=== PATIENT | female | born 2000 | race Hispanic/Latino ===

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

== ENCOUNTER 2018-03-02 18:40 | Emergency (ER) | payer OTHER ==
[2018-03-02 19:30] LABS: Urine Bacteria 20-50 /HPF (<20); Urine Culture Reflex Order NOT NEEDED; Urine Mucus 2+ /HPF (NONE SEEN); Urine RBC <5 /HPF (NONE SEEN)
[2018-03-02 19:31] LABS: Urine Blood NEGATIVE (NEG); Urine Glucose NEGATIVE (NEG); Urine Protein NEGATIVE (NEG); Urine pH 7.5 (5.0-7.0)
[2018-03-02 20:21] LABS: Absolute Lymphocytes (CBC) 2.6 K/uL (0.7-4.9); Absolute Monocytes 0.7 K/uL (0.1-1.3); Absolute Neutrophil 4.4 K/uL (1.8-8.0); Basophils % 0.5 % (0-1.3); Eosinophils % 1.1 % (0-4.4); Hematocrit 37.7 % (36.0-45.0); MCH 29.7 pg (27.0-35.0); MCV 86.4 fL (80-100); MPV 7.8 fL (7.6-11.3); RBC Red Blood Cell Count 4.36 M/uL (3.86-4.86)
[2018-03-02] MEDS ORDERED: NA CHLORIDE 0.9% 1,000 ML ONE (20:23)
[2018-03-02] MEDS ORDERED: KETOROLAC 30 MG/ML INJ ONE (20:23)
[2018-03-02 20:51] LABS: ALT/SGPT 18 U/L (12-78); AST/SGOT 10 U/L (15-37); Albumin 4.1 g/dL (3.4-5.0); Alkaline Phosphatase 55 U/L (45-117); BUN Blood Urea Nitrogen 16 mg/dL (7-18); Bicarbonate 24 mmol/L (21-32); Bilirubin Direct 0.1 mg/dL (0-0.2); Bilirubin Total 0.5 mg/dL (0.2-1.0); Glucose Level 87 mg/dL (74-106); Lipase 121 U/L (73-393); Potassium 3.7 mmol/L (3.5-5.1); Protein, Total 7.8 g/dL (6.4-8.2); Sodium Level 140 mmol/L (136-145)
[2018-03-03] MEDS ORDERED: PROMETHAZINE 25 MG/ML VIAL ONE (00:07)
--- NOTE | 2018-03-03 00:26 | EDPHYS ---
Physician Documentation [facility] Name: Brenda Reina Age: 17 yrs Sex: Female : 2000 Arrival Date: 03/02/2018 Time: 18:43 Bed 28 Private MD: None, None ED Physician Thiago Amador HPI: 03/02 21:57 This 17 yrs old Female presents to ER via Ambulatory with complaints of snw Abdominal Pain. 21:57 The patient presents with abdominal pain in the upper abdomen. Onset: The snw symptoms/episode began/occurred acutely. The symptoms do not radiate. Associated signs and symptoms: Pertinent positives: nausea. The symptoms are described as steady. Severity of pain: At its worst the pain was moderate. The patient has not experienced similar symptoms in the past. The patient has not recently seen a physician. spotting, irregular menses. 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 - Social history:: Smoking status: Patient/guardian denies using tobacco. - Ebola Screening: : No symptoms or risks identified at this time. ROS: 21:57 Constitutional: Negative for fever, chills, and weight loss, Eyes: Negative for injury, snw pain, redness, and discharge, ENT: Negative for injury, pain, and discharge, Neck: Negative for injury, pain, and swelling, Cardiovascular: Negative for chest pain, palpitations, and edema, Respiratory: Negative for shortness of breath, cough, wheezing, and pleuritic chest pain, Back: Negative for injury and pain, : Negative for injury, bleeding, discharge, and swelling, MS/Extremity: Negative for injury and deformity, Skin: Negative for injury, rash, and discoloration, Neuro: Negative for headache, weakness, numbness, tingling, and seizure. 21:57 Abdomen/GI: Positive for abdominal pain, nausea. Exam: 21:46 Constitutional: This is a well developed, well nourished patient who is awake, alert, snw and in no acute distress. Head/Face: Normocephalic, atraumatic. Eyes: Pupils equal round and reactive to light, extra-ocular motions intact. Lids and lashes normal. Conjunctiva and sclera are non-icteric and not injected. Cornea within normal limits. Periorbital areas with no swelling, redness, or edema. ENT: Nares patent. No nasal discharge, no septal abnormalities noted. Tympanic membranes are normal and external auditory canals are clear. Oropharynx with no redness, swelling, or masses, exudates, or evidence of obstruction, uvula midline. Mucous membranes moist. Neck: Trachea midline, no thyromegaly or masses palpated, and no cervical lymphadenopathy. Supple, full range of motion without nuchal rigidity, or vertebral point tenderness. No Meningismus. Chest/axilla: Normal chest wall appearance and motion. Nontender with no deformity. No lesions are appreciated. Cardiovascular: Regular rate and rhythm with a normal S1 and S2. No gallops, murmurs, or rubs. Normal PMI, no JVD. No pulse deficits. Respiratory: Lungs have equal breath sounds bilaterally, clear to auscultation and percussion. No rales, rhonchi or wheezes noted. No increased work of breathing, no retractions or nasal flaring. Back: No spinal tenderness. No costovertebral tenderness. Full range of motion. Skin: Warm, dry with normal turgor. Normal color with no rashes, no lesions, and no evidence of cellulitis. MS/ Extremity: Pulses equal, no cyanosis. Neurovascular intact. Full, normal range of motion. Neuro: Awake and alert, GCS 15, oriented to person, place, time, and situation. Cranial nerves II-XII grossly intact. Motor strength 5/5 in all extremities. Sensory grossly intact. Cerebellar exam normal. Normal gait. Psych: Awake, alert, with orientation to person, place and time. Behavior, mood, and affect are within normal limits. 21:46 Abdomen/GI: Inspection: distension, that is mild, Bowel sounds: hyperactive, Palpation: moderate abdominal tenderness, in all quadrants. Vital Signs: 19:03 BP 115 / 76; Pulse 86; Resp 18; Temp 98.1; Pulse Ox 100% on R/A; Weight 46.27 kg; ph Height 5 ft. 2 in. (157.48 cm); Pain 7/10; 19:37 BP 109 / 76; Pulse 87; Resp 17; Temp 97.6(O); Pulse Ox 100% on R/A; Pain 7/10; ed1 21:05 BP 115 / 77; Pulse 61; Resp 17; Pulse Ox 100% on R/A; Pain 5/10; ed1 22:01 BP 122 / 79; Pulse 73; Resp 17; Pulse Ox 99% on R/A; Pain 5/10; ed1 23:51 BP 114 / 81; Pulse 70; Resp 18; Temp 98.8; Pulse Ox 100% on R/A; ag4 03/03 00:42 BP 115 / 78; Pulse 70; Resp 16 S; Temp 98.7(O); Pulse Ox 96% on R/A; bb 03/02 19:03 Body Mass Index 18.66 (46.27 kg, 157.48 cm) ph MDM: 03/02 19:37 Patient medically screened. snw 22:38 Data reviewed: vital signs, nurses notes. Data interpreted: Pulse oximetry: on room air snw is 99 %. Counseling: I had a detailed discussion with the patient and/or guardian regarding: the historical points, exam findings, and any diagnostic results supporting the discharge/admit diagnosis. Awaiting: pt to CT via w/c. 03/02 18:59 Order name: Urine Culture snw 03/02 18:59 Order name: Urine Microscopic Only; Complete Time: 19:32 snw 03/02 19:20 Order name: Urine Dipstick--Ancillary (enter results); Complete Time: 19:32 gm 03/02 19:20 Order name: Urine --Ancillary (enter results); Complete Time: 19:32 gm 03/02 19:51 Order name: Basic Metabolic Panel; Complete Time: 20:53 snw 03/02 19:51 Order name: CBC with Diff; Complete Time: 20:33 snw 03/02 18:59 Order name: Urine Test (obtain specimen); Complete Time: 19:13 snw 03/02 18:59 Order name: Urine Dipstick-Ancillary (obtain specimen); Complete Time: 19:13 snw 03/02 19:51 Order name: Hepatic Function; Complete Time: 20:53 snw 03/02 19:51 Order name: Lipase; Complete Time: 20:53 snw 03/02 19:52 Order name: CT Abd/Pelvis - W/Contrast snw 03/02 19:51 Order name: IV Saline Lock; Complete Time: 20:12 snw 03/02 19:51 Order name: Labs collected and sent; Complete Time: 20:12 snw Administered Medications: 20:19 Drug: NS 0.9% 1000 ml Route: IV; Rate: 1 bolus; Site: right antecubital; bb 21:06 Follow up: IV Status: Completed infusion; IV Intake: 1000ml ed1 20:19 Drug: TORadol 30 mg Route: IVP; Site: right antecubital; bb 21:06 Follow up: Response: No adverse reaction; Pain is decreased ed1 03/03 00:01 Drug: Phenergan 6.25 mg Route: IVP; Site: right antecubital; kr2 00:34 Follow up: Response: No adverse reaction; Nausea is decreased kr2 Disposition: 03/03/18 00:25 Discharged to Home. Impression: Lower abdominal pain, unspecified. - Condition is Stable. - Discharge Instructions: Abdominal Pain, Adult, Hypertension. - Prescriptions for Bentyl 20 mg Oral Tablet - take 1 tablet by ORAL route every 6 hours As needed; 20 tablet. Zofran 4 mg Oral Tablet - take 1 tablet by ORAL route every 12 hours As needed; 20 tablet. - Medication Reconciliation Form, Thank You Letter, Antibiotic Education, Prescription Opioid Use form. - Follow up: Private Physician; When: 2 - 3 days; Reason: Recheck today's complaints, Continuance of care, Re-evaluation by your physician. Follow up: Emergency Department; When: As needed; Reason: Worsening of condition. Signatures: Dispatcher [employer] [facility] Lizzy Edwards, CYCLE TOURING GUIDE-C CYCLE TOURING GUIDE-Csnw Lisa Cain RN RN bb Anila Parrish, RN RN Diane Napoles RN RN yuri2 Joan Rdz LVN ed1 Corrections: (The following items were deleted from the chart) 00:43 00:25 03/03/2018 00:25 Discharged to Home. Impression: Lower abdominal pain, bb unspecified. Condition is Stable. Forms are Medication Reconciliation Form, Thank You Letter, Antibiotic Education, Prescription Opioid Use. Follow up: Private Physician; When: 2 - 3 days; Reason: Recheck today's complaints, Continuance of care, Re-evaluation by your physician. Follow up: Emergency Department; When: As needed; Reason: Worsening of condition. w
--- NOTE | 2018-03-03 00:26 | ER ---
Nurse's Notes [facility] Name: Brenda Reina Age: 17 yrs Sex: Female : 2000 Arrival Date: 03/02/2018 Time: 18:43 Bed 28 Private MD: None, None Diagnosis: Lower abdominal pain, unspecified Presentation: 03/02 19:02 Presenting complaint: Patient states: Lower abdominal pain and diarrhea x 2-3 days, ph denies vomiting or fever. Transition of care: patient was not received from another setting of care. Onset of symptoms was March 02, 2018. Risk Assessment: Do you want to hurt yourself or someone else? Patient reports no desire to harm self or others. Initial Sepsis Screen: Does the patient meet any 2 criteria? No. Patient's initial sepsis screen is negative. Does the patient have a suspected source of infection? No. Patient's initial sepsis screen is negative. Care prior to arrival: None. 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 - Social history:: Smoking status: Patient/guardian denies using tobacco. - Ebola Screening: : No symptoms or risks identified at this time. Screenin:34 Abuse screen: Denies threats or abuse. Denies injuries from another. Nutritional ed1 screening: No deficits noted. Tuberculosis screening: No symptoms or risk factors identified. Fall Risk None identified. Assessment: 19:34 General: Appears uncomfortable, Behavior is calm, cooperative. Pain: Complains of pain ed1 in abdomen Pain does not radiate. Pain currently is 7 out of 10 on a pain scale. Quality of pain is described as burning, aching, Pain began 4 hours ago. Is continuous. Neuro: Level of Consciousness is awake, alert, obeys commands, Oriented to person, place, time, situation. Cardiovascular: Denies chest pain, Heart tones S1 S2 present. Respiratory: Airway is patent Respiratory effort is even, unlabored, Respiratory pattern is regular, symmetrical, Breath sounds are clear bilaterally. GI: Abdomen is flat, Bowel sounds present X 4 quads. Abd is soft and non tender X 4 quads. : Reports burning with urination. EENT: No signs and/or symptoms were reported regarding the EENT system. Derm: Skin is intact, is healthy with good turgor, Skin is dry, Skin is normal, Skin temperature is warm. Musculoskeletal: Circulation, motion, and sensation intact. 20:00 Reassessment: I agree with this assessment. bb 21:05 Reassessment: Patient appears in no apparent distress at this time. Patient and/or ed1 family updated on plan of care and expected duration. Pain level reassessed. Patient is alert, oriented x 3, equal unlabored respirations, skin warm/dry/pink. Patient states feeling better. Patient states symptoms have improved. 22:01 Reassessment: Patient appears in no apparent distress at this time. No changes from ed1 previously documented assessment. Patient and/or family updated on plan of care and expected duration. Pain level reassessed. Patient is alert, oriented x 3, equal unlabored respirations, skin warm/dry/pink. 23:44 Reassessment: Patient and/or family updated on plan of care and expected duration. Pain bb level reassessed. Patient is alert, oriented x 3, equal unlabored respirations, skin warm/dry/pink. pt resting quietly, family at bedside. 03/03 00:41 Reassessment: Patient and/or family updated on plan of care and expected duration. Pain bb level reassessed. Patient is alert, oriented x 3, equal unlabored respirations, skin warm/dry/pink. pt verbalized understanding of and agrees to plan of care discharge instructions given pt ambulated with steady gait accompanied by spouse. Vital Signs: 03/02 19:03 BP 115 / 76; Pulse 86; Resp 18; Temp 98.1; Pulse Ox 100% on R/A; Weight 46.27 kg; ph Height 5 ft. 2 in. (157.48 cm); Pain 7/10; 19:37 BP 109 / 76; Pulse 87; Resp 17; Temp 97.6(O); Pulse Ox 100% on R/A; Pain 7/10; ed1 21:05 BP 115 / 77; Pulse 61; Resp 17; Pulse Ox 100% on R/A; Pain 5/10; ed1 22:01 BP 122 / 79; Pulse 73; Resp 17; Pulse Ox 99% on R/A; Pain 5/10; ed1 23:51 BP 114 / 81; Pulse 70; Resp 18; Temp 98.8; Pulse Ox 100% on R/A; ag4 12/12 00:42 BP 115 / 78; Pulse 70; Resp 16 S; Temp 98.7(O); Pulse Ox 96% on R/A; bb 03/02 19:03 Body Mass Index 18.66 (46.27 kg, 157.48 cm) ph ED Course: 03/02 18:43 Patient arrived in ED. mr 18:44 None, None is Private Physician. mr 18:59 [facility]-C [facility]. snw 18:59 Thiago Amador MD is Attending Physician. snw 19:01 Joan Rdz LVN is Primary Nurse. ed1 19:02 Triage completed. ph 19:04 Arm band placed on Patient placed in an exam room, on a stretcher. ph 19:34 Patient has correct armband on for positive identification. Bed in low position. Call ed1 light in reach. Adult w/ patient. Pulse ox on. NIBP on. Warm blanket given. 20:10 Inserted saline lock: 22 gauge in right antecubital area, using aseptic technique. ag4 Blood collected. 21:05 Resting quietly. ed1 21:[address] Scan. ed1 22:05 Primary Nurse role handed off by Joan Rdz LVN ed1 23:02 CT Abd/Pelvis - W/Contrast In Process Unspecified. EDMS 23:44 Lisa Cain, RN is Primary Nurse. bb 03/03 00:43 No provider procedures requiring assistance completed. IV discontinued, intact, bb bleeding controlled, No redness/swelling at site. Pressure dressing applied. Administered Medications: 03/02 20:19 Drug: NS 0.9% 1000 ml Route: IV; Rate: 1 bolus; Site: right antecubital; bb 21:06 Follow up: IV Status: Completed infusion; IV Intake: 1000ml ed1 20:19 Drug: TORadol 30 mg Route: IVP; Site: right antecubital; bb 21:06 Follow up: Response: No adverse reaction; Pain is decreased ed1 12/ 00:01 Drug: Phenergan 6.25 mg Route: IVP; Site: right antecubital; kr2 00:34 Follow up: Response: No adverse reaction; Nausea is decreased kr2 Intake: 12/ 21:06 IV: 1000ml; Total: 1000ml. ed1 Outcome: 03/03 00:25 Discharge ordered by . nico 00:43 Discharged to home ambulatory, with family. bb 00:43 Condition: stable 00:43 Discharge instructions given to patient, Instructed on discharge instructions, follow up and referral plans. medication usage, Demonstrated understanding of instructions, follow-up care, medications, Prescriptions given X 2. 00:43 Patient left the ED. bb Signatures: Dispatcher [employer] EDMS Lizzy Edwards, ALICE ELECTROLYSIST-April SnyderAshley mr CainLisa, RN RN bb Joan Rdz, LEAD ASSEMBLER LEAD ASSEMBLER ed1 Anila Parrish RN Diane Wiggins ph, RN RN kr2 Hoang Casas ag4 Corrections: (The following items were deleted from the chart) 12/ 19:37 19:34 Pain: Complains of pain in abdomen Pain does not radiate. Pain currently is 4 out ed1 of 10 on a pain scale. Quality of pain is described as burning, aching, Pain began 4 hours ago. Is continuous, ed1 21:06 21:[address] ed1 ed1
--- NOTE | 2018-03-03 07:50 | RAD REPORT ---
EXAM DESCRIPTION: CT - Abdomen Pelvis W Contrast - 03/03/2018 2:18 am CLINICAL HISTORY: Abdominal pain. Lower abdominal pain COMPARISON: June 2016 TECHNIQUE: Computed axial tomography of the abdomen and pelvis was obtained. 100 cc Isovue-300 is ad ministered intravenously. Oral contrast was given. Preliminary report generated by [facility] radiologic in review prior to dictation All CT scans are performed using dose optimization technique as appropriate and may include automated exposure control or mA/KV adjustment according to patient size. FINDINGS: The liver, spleen, pancreas, adrenals and kidneys appear unremarkable. The appendix is normal caliber. There is no evidence of diverticulitis An adnexal mass is not displayed IMPRESSION: No acute abnormality seen
== END 2018-03-03 00:43 | disposition home or self-care (01) ==
LOC: ER 18:40
DX: R10.30 Lower abdominal pain, unspecified (principal); J45.909 Unspecified asthma, uncomplicated
CPT/HCPCS: 36415; 74177; 80048; 80076; 81003; 81015; 81025; 83690; 85025; 87086; 87088; 96361; 96374; 96375; 99284; J2550; J7030; Q9967

== ENCOUNTER 2018-12-18 09:31 | Emergency (ER) | payer OTHER ==
[2018-12-18] MEDS ORDERED: MAGNE/ALUM HYDROXD 30 ML UCUP ONE (09:55)
[2018-12-18] MEDS ORDERED: LIDOCAINE VISCOUS 2% SOLN 15 ML UDC ONE (09:55)
[2018-12-18] MEDS ORDERED: FAMOTIDINE 20 MG/2 ML VIAL IV ONE (09:55)
[2018-12-18 10:16] LABS: Urine Blood 2+ (NEG); Urine Glucose NEGATIVE (NEG); Urine Protein NEGATIVE (NEG); Urine pH 6.5 (5.0-7.0)
[2018-12-18 10:17] LABS: Absolute Lymphocytes (CBC) 2.1 K/uL (0.7-4.9); Basophils % 0.4 % (0-1.3); Hematocrit 38.3 % (36.0-45.0); Lymphocytes % 52.2 % (15.3-44.8); MPV 7.5 fL (7.6-11.3); RBC Red Blood Cell Count 4.61 M/uL (3.86-4.86)
[2018-12-18 10:40] LABS: ALT/SGPT 41 U/L (12-78); AST/SGOT 37 U/L (15-37); Albumin 3.9 g/dL (3.4-5.0); Alkaline Phosphatase 79 U/L (45-117); BUN Blood Urea Nitrogen 8 mg/dL (7-18); Bicarbonate 24 mmol/L (21-32); Bilirubin Direct < 0.1 mg/dL (0-0.2); Bilirubin Total 0.4 mg/dL (0.2-1.0); Glucose Level 82 mg/dL (74-106); Lipase 113 U/L (73-393); Potassium 3.8 mmol/L (3.5-5.1); Protein, Total 7.9 g/dL (6.4-8.2); Sodium Level 142 mmol/L (136-145)
--- NOTE | 2018-12-18 10:57 | ER ---
Nurse's Notes [facility] Name: Brenda Reina Age: 18 yrs Sex: Female : 2000 Arrival Date: 12/18/2018 Time: 09:34 Bed 7 Private MD: None, None Diagnosis: Epigastric pain Presentation: 12/18 09:44 Presenting complaint: Patient states: epigastric discomfort after eating and bloating ss that began 1 week ago. Patient reports Tylenol is not helping and after eating last night, pain has not gone away yet. Transition of care: patient was not received from another setting of care. Onset of symptoms was December 11, 2018. Risk Assessment: Do you want to hurt yourself or someone else? Patient reports no desire to harm self or others. Initial Sepsis Screen: Does the patient meet any 2 criteria? No. Patient's initial sepsis screen is negative. Does the patient have a suspected source of infection? No. Patient's initial sepsis screen is negative. Care prior to arrival: None. 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 - Social history:: Smoking status: Patient/guardian denies using tobacco. - Ebola Screening: : Patient denies exposure to infectious person Patient denies travel to an Ebola-affected area in the 21 days before illness onset. Screenin:00 Abuse screen: Denies threats or abuse. Denies injuries from another. Nutritional jl7 screening: No deficits noted. Tuberculosis screening: No symptoms or risk factors identified. Fall Risk IV access (20 points). Total Puga Fall Scale indicates No Risk (0-24 pts). Assessment: 10:00 General: Appears in no apparent distress. uncomfortable, Behavior is calm, cooperative, jl7 appropriate for age. Pain: Complains of pain in epigastric area and right upper quadrant Pain does not radiate. Pain currently is 6 out of 10 on a pain scale. Quality of pain is described as sharp, Pain began 1 week ago, hurts with eating, ate yesterday and hasn't stopped hurting since Is intermittent. Neuro: Level of Consciousness is awake, alert, obeys commands. Cardiovascular: Patient's skin is warm and dry. Respiratory: Airway is patent Respiratory effort is even, unlabored, Respiratory pattern is regular, symmetrical. GI: Stools are reported to be loose, Last BM was December 17, 2018. Bowel sounds present X 4 quads. Abd is soft X 4 quads Abd is non tender in umbilical area, left upper quadrant and right lower quadrant Abdomen is tender to palpation in epigastric area, suprapubic area and right upper quadrant Reports nausea, Patient currently denies vomiting. : No signs and/or symptoms were reported regarding the genitourinary system. EENT: No signs and/or symptoms were reported regarding the EENT system. Derm: Skin is pink, warm \T\ dry. Musculoskeletal: No signs and/or symptoms reported regarding the musculoskeletal system. Vital Signs: 09:44 BP 113 / 79; Pulse 83; Resp 15; Temp 98.1(TE); Pulse Ox 100% on R/A; Weight 48.99 kg; ss Height 5 ft. 2 in. (157.48 cm); Pain 5/10; 10:04 BP 123 / 81; Pulse 77; Resp 16 S; Pulse Ox 100% on R/A; Pain 6/10; jl7 09:44 Body Mass Index 19.75 (48.99 kg, 157.48 cm) ED Course: 09:34 Patient arrived in ED. mr 09:34 Nikunj Herrmann PA is PHCP. jr8 09:34 Sukhdev Burdick MD is Attending Physician. jr8 09:34 None, None is Private Physician. mr 09:44 Arm band placed on right wrist. ss 09:46 Triage completed. ss 09:51 Mariel Santa, [place] is Primary Nurse. jl7 10:00 Patient has correct armband on for positive identification. Placed in gown. Bed in low jl7 position. Call light in reach. Side rails up X 1. Pulse ox on. NIBP on. Warm blanket given. 10:00 Initial lab(s) drawn, by ED staff, sent to lab. Urine collected: clean catch specimen, jl7 clear. Inserted saline lock: 20 gauge in right antecubital area, using aseptic technique. Blood collected. 11:22 No provider procedures requiring assistance completed. IV discontinued, intact, jl7 bleeding controlled, No redness/swelling at site. Pressure dressing applied. Administered Medications: 10:00 Drug: GI Cocktail without - (Maalox Suspension 30 ml, Lidocaine Liquid 2 % 15 jl7 ml) Route: PO; 10:30 Follow up: Response: No adverse reaction; Pain is decreased jl7 10:00 Drug: Pepcid 20 mg Route: IVP; Site: right antecubital; jl7 10:30 Follow up: Response: No adverse reaction; Pain is decreased jl7 Outcome: 10:56 Discharge ordered by . christian 11:22 Discharged to home ambulatory. jl7 11:22 Condition: stable 11:22 Discharge instructions given to patient, family, Instructed on discharge instructions, follow up and referral plans. Demonstrated understanding of instructions, follow-up care. 11:23 Patient left the ED. jl7 Signatures: Ashley Snyder Shelby, RN RN Nikunj Biswas PA PA jrMariel Larios RN RN jl7
--- NOTE | 2018-12-18 10:57 | EDPHYS ---
Physician Documentation [facility] Name: Brenda Reina Age: 18 yrs Sex: Female : 2000 Arrival Date: 12/18/2018 Time: 09:34 Bed 7 Private MD: None, None ED Physician Sukhdev Burdick HPI: 12/18 09:51 This 18 yrs old Female presents to ER via Ambulatory with complaints of jr8 Abdominal Pain. 09:51 The patient presents with abdominal pain in the epigastric area. Associated signs and jr8 symptoms: Pertinent positives: nausea. 09:52 The symptoms are described as burning. Modifying factors: the symptoms are aggravated jr8 by food. Severity of pain: At its worst the pain was mild. Pt reports burning epigastric pain that is exacerbated by eating food and has been relieved by tums in the past, reports that this episode has been going on since last night after eating chicken from [employer]. Denies vomiting. 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 - Social history:: Smoking status: Patient/guardian denies using tobacco. - Ebola Screening: : Patient denies exposure to infectious person Patient denies travel to an Ebola-affected area in the 21 days before illness onset. ROS: 09:53 Constitutional: Negative for fever, chills, and weight loss, Eyes: Negative for injury, jr8 pain, redness, and discharge, ENT: Negative for injury, pain, and discharge, Neck: Negative for injury, pain, and swelling, Cardiovascular: Negative for chest pain, palpitations, and edema, Respiratory: Negative for shortness of breath, cough, wheezing, and pleuritic chest pain, Back: Negative for injury and pain, MS/Extremity: Negative for injury and deformity, Skin: Negative for injury, rash, and discoloration, Neuro: Negative for headache, weakness, numbness, tingling, and seizure. 09:53 Abdomen/GI: Positive for abdominal pain, nausea. Exam: 09:53 Constitutional: This is a well developed, well nourished patient who is awake, alert, jr8 and in no acute distress. Head/Face: Normocephalic, atraumatic. Eyes: Pupils equal round and reactive to light, extra-ocular motions intact. Lids and lashes normal. Conjunctiva and sclera are non-icteric and not injected. Cornea within normal limits. Periorbital areas with no swelling, redness, or edema. ENT: Nares patent. No nasal discharge, no septal abnormalities noted. Tympanic membranes are normal and external auditory canals are clear. Oropharynx with no redness, swelling, or masses, exudates, or evidence of obstruction, uvula midline. Mucous membranes moist. Neck: Trachea midline, no thyromegaly or masses palpated, and no cervical lymphadenopathy. Supple, full range of motion without nuchal rigidity, or vertebral point tenderness. No Meningismus. Chest/axilla: Normal chest wall appearance and motion. Nontender with no deformity. No lesions are appreciated. Cardiovascular: Regular rate and rhythm with a normal S1 and S2. No gallops, murmurs, or rubs. Normal PMI, no JVD. No pulse deficits. Respiratory: Lungs have equal breath sounds bilaterally, clear to auscultation and percussion. No rales, rhonchi or wheezes noted. No increased work of breathing, no retractions or nasal flaring. 09:53 Abdomen/GI: Inspection: abdomen appears normal, Bowel sounds: normal, in all quadrants, Palpation: soft, in all quadrants, nontender, in all quadrants, Indicators: McBurney's point is not tender, Guzman's sign is negative, Rovsing's sign is negative, Obturator sign is negative, Psoas sign is negative. Vital Signs: 09:44 BP 113 / 79; Pulse 83; Resp 15; Temp 98.1(TE); Pulse Ox 100% on R/A; Weight 48.99 kg; ss Height 5 ft. 2 in. (157.48 cm); Pain 5/10; 10:04 BP 123 / 81; Pulse 77; Resp 16 S; Pulse Ox 100% on R/A; Pain 6/10; jl7 09:44 Body Mass Index 19.75 (48.99 kg, 157.48 cm) MDM: 09:34 Patient medically screened. jr8 10:54 Data reviewed: vital signs, nurses notes, lab test result(s), and as a result, I will jr8 discharge patient. Data interpreted: Pulse oximetry: on room air is 100 %. Interpretation: normal. ED course: Pt pain relieved with GI cocktail and pepcid, now pain free and hungry again. Discussed use of pepcid and need for FU with PCP. 10:55 Counseling: I had a detailed discussion with the patient and/or guardian regarding: the [facility] historical points, exam findings, and any diagnostic results supporting the discharge/admit diagnosis, lab results, radiology results, the need for outpatient follow up, a family practitioner, to return to the emergency department if symptoms worsen or persist or if there are any questions or concerns that arise at home. Response to treatment: the patient's symptoms have resolved after treatment. 12/18 09:49 Order name: Urine Dipstick--Ancillary (enter results); Complete Time: 10:50 12/18 09:49 Order name: Urine --Ancillary (enter results); Complete Time: 10: 12/18 09:50 Order name: Basic Metabolic Panel; Complete Time: 10:50 12/18 09:50 Order name: CBC with Diff; Complete Time: 10:50 12/18 09:50 Order name: Creatinine for Radiology; Complete Time: 10:50 12/18 09:50 Order name: Hepatic Function; Complete Time: 10:50 12/18 09:50 Order name: Lipase; Complete Time: 10:50 12/18 09:50 Order name: IV Saline Lock; Complete Time: 10:12/18 09:50 Order name: Labs collected and sent; Complete Time: 10:12/18 09:50 Order name: Urine Dipstick-Ancillary (obtain specimen); Complete Time: :51 12/18 09:50 Order name: Urine Test (obtain specimen); Complete Time: :51 Administered Medications: 10:00 Drug: GI Cocktail without - (Maalox Suspension 30 ml, Lidocaine Liquid 2 % 15 jl7 ml) Route: PO; 10:30 Follow up: Response: No adverse reaction; Pain is decreased jl7 10:00 Drug: Pepcid 20 mg Route: IVP; Site: right antecubital; jl7 10:30 Follow up: Response: No adverse reaction; Pain is decreased jl7 Disposition: 12/18/18 10:56 Discharged to Home. Impression: Epigastric pain. - Condition is Stable. - Discharge Instructions: Abdominal Pain, Adult, Gastritis, Adult. - Medication Reconciliation Form, Thank You Letter form. - Follow up: Private Physician; When: 2 - 3 days; Reason: Recheck today's complaints, Re-evaluation by your physician. - Problem is new. - Symptoms are resolved. - Notes: Take pepcid 20mg once per day, if pain is not relieved take pepcid 20mg twice per day. Follow up with primary care doctor. Return to ED with significant worsening of symptoms, fever with abdominal pain, unable to tolerate fluids by mouth. Addendum: 12/20/2018 07:57 Co-signature as Attending Physician, Sukhdev Burdick MD I agree with the assessment and c galo plan of care. Signatures: Dispatcher [employer] EDVA Sukhdev Burdick MD MD cha Smirch, Shelby RN RN Nikunj Biswas PA PA jr8 Mariel Santa RN RN jl7 Corrections: (The following items were deleted from the chart) 12/18 11:23 10:56 12/18/2018 10:56 Discharged to Home. Impression: Epigastric pain. Condition is jl7 Stable. Forms are Medication Reconciliation Form, Thank You Letter, Antibiotic Education, Prescription Opioid Use. Follow up: Private Physician; When: 2 - 3 days; Reason: Recheck today's complaints, Re-evaluation by your physician. Problem is new. Symptoms are resolved. jr8
[2018-12-18 11:37] VITALS: TEMP 98.1; O2SAT 100
[2018-12-18 11:39] VITALS: BP 123/81
== END 2018-12-18 11:23 | disposition home or self-care (01) ==
LOC: ER 09:31
DX: R10.13 Epigastric pain (principal)
CPT/HCPCS: 36415; 80048; 80076; 81003; 81025; 83690; 85025; 96374; 99284

== ENCOUNTER 2019-05-22 21:16 | Emergency (ER) | payer OTHER ==
--- NOTE | 2019-05-22 23:18 | RAD REPORT ---
EXAM DESCRIPTION: RAD - Chest Pa And Lat (2 Views) - 05/22/2019 10:51 pm CLINICAL HISTORY: CHEST PAIN Chest pain. COMPARISON: No comparisons FINDINGS: The lungs are clear. The heart is normal in size. No displaced fractures. Gentle dextrosco liosis of the thoracic spine.
--- NOTE | 2019-05-22 23:53 | ER ---
Nurse's Notes [facility] Name: Brenda Reina Age: 18 yrs Sex: Female : 2000 Arrival Date: 05/22/2019 Time: 21:18 Bed 17 Private MD: Diagnosis: Chest pain, unspecified Presentation: 05/21 21:33 Chief complaint: Patient states: she is having chest pain for a couple of days bb radiating to her upper back pain is intermittent but now is constant denies SOB, nausea. Coronavirus screen: The patient has NOT traveled to [place] in the past 14 days. Proceed with normal triage procedures. Ebola Screen: No symptoms or risks identified at this time. Initial Sepsis Screen: Does the patient meet any 2 criteria? No. Patient's initial sepsis screen is negative. Does the patient have a suspected source of infection? No. Patient's initial sepsis screen is negative. Risk Assessment: Do you want to hurt yourself or someone else? Patient reports no desire to harm self or others. 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 - Social history:: Smoking status: Patient denies any tobacco usage or history of. Vital Signs: 21:33 Resp 16 S; Weight 49.9 kg (R); Height 5 ft. 2 in. (157.48 cm) (R); Pain 7/10; bb 21:37 BP 115 / 76; Pulse 88; Resp 16 S; Temp 98.4; Pulse Ox 99% on R/A; bb 21:33 Body Mass Index 20.12 (49.90 kg, 157.48 cm) bb ED Course: 21:18 Patient arrived in ED. cl3 21:35 Triage completed. bb 21:36 Arm band placed on Patient placed in waiting room, Patient notified of wait time. EKG bb completed in triage. Results shown to MD. 22:04 Nikunj Herrmann PA is PHCP. jr8 22:04 Miguel Angel Boyle MD is Attending Physician. jr8 22:48 XRAY Chest Pa And Lat (2 Views) In Process Unspecified. EDMS Administered Medications: 05/22 00:14 Drug: TORadol 30 mg Route: IM; Site: right gluteus; mg2 00:15 Follow up: Response: No adverse reaction; Medication administered at discharge. mg2 Outcome: 05/21 23:53 Discharge ordered by . jr8 05/22 00:15 Discharged to home ambulatory, with family. mg2 Condition: stable Discharge instructions given to patient, Instructed on discharge instructions, follow up and referral plans. medication usage, Demonstrated understanding of instructions, follow-up care, medications, Prescriptions given X 1. 00:35 Patient left the ED. mg2 Signatures: Dispatcher [employer] EDMS Lisa Cain RN RN bb Nikunj Herrmann PA PA jr8 Aristides Saldivar RN RN mg2 Brandon Cerda cl3
--- NOTE | 2019-05-22 23:54 | EDPHYS ---
Physician Documentation [facility] Name: Brenda Reina Age: 18 yrs Sex: Female : 2000 Arrival Date: 05/22/2019 Time: 21:18 Bed 17 Private MD: ED Physician Miguel Angel Boyle HPI: 05/21 23:47 This 18 yrs old Female presents to ER via Ambulatory with complaints of Chest jr8 Pain. 23:47 The patient or guardian reports chest pain that is located primarily in the substernal jr8 area. The pain does not radiate. Associated signs and symptoms: The patient has no apparent associated signs or symptoms. The chest pain is described as squeezing. Duration: The patient or guardian reports multiple episodes, that are intermittent, that wax and wane. Modifying factors: The symptoms are alleviated by nothing. the symptoms are aggravated by deep breath, movement. Severity of pain: At its worst the pain was mild in the emergency department the pain is unchanged. The patient has not experienced similar symptoms in the past. The patient has not recently seen a physician. 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 - Social history:: Smoking status: Patient denies any tobacco usage or history of. ROS: 23:47 Eyes: Negative for injury, pain, redness, and discharge, ENT: Negative for injury, jr8 pain, and discharge, Neck: Negative for injury, pain, and swelling, Respiratory: Negative for shortness of breath, cough, wheezing, and pleuritic chest pain, Abdomen/GI: Negative for abdominal pain, nausea, vomiting, diarrhea, and constipation, Back: Negative for injury and pain, MS/Extremity: Negative for injury and deformity, Skin: Negative for injury, rash, and discoloration, Neuro: Negative for headache, weakness, numbness, tingling, and seizure. 23:47 Cardiovascular: Positive for chest pain, Negative for edema, orthopnea, palpitations, paroxysmal nocturnal dyspnea. Exam: 23:47 Eyes: Pupils equal round and reactive to light, extra-ocular motions intact. Lids and jr8 lashes normal. Conjunctiva and sclera are non-icteric and not injected. Cornea within normal limits. Periorbital areas with no swelling, redness, or edema. ENT: Nares patent. No nasal discharge, no septal abnormalities noted. Tympanic membranes are normal and external auditory canals are clear. Oropharynx with no redness, swelling, or masses, exudates, or evidence of obstruction, uvula midline. Mucous membranes moist. Neck: Trachea midline, no thyromegaly or masses palpated, and no cervical lymphadenopathy. Supple, full range of motion without nuchal rigidity, or vertebral point tenderness. No Meningismus. Cardiovascular: Regular rate and rhythm with a normal S1 and S2. No gallops, murmurs, or rubs. Normal PMI, no JVD. No pulse deficits. Respiratory: Lungs have equal breath sounds bilaterally, clear to auscultation and percussion. No rales, rhonchi or wheezes noted. No increased work of breathing, no retractions or nasal flaring. Abdomen/GI: Soft, non-tender, with normal bowel sounds. No distension or tympany. No guarding or rebound. No evidence of tenderness throughout. Back: No spinal tenderness. No costovertebral tenderness. Full range of motion. Skin: Warm, dry with normal turgor. Normal color with no rashes, no lesions, and no evidence of cellulitis. MS/ Extremity: Pulses equal, no cyanosis. Neurovascular intact. Full, normal range of motion. Neuro: Awake and alert, GCS 15, oriented to person, place, time, and situation. Cranial nerves II-XII grossly intact. Motor strength 5/5 in all extremities. Sensory grossly intact. Cerebellar exam normal. Normal gait. 23:47 Chest/axilla: Inspection: normal, Palpation: tenderness, that is mild, of the anterior aspect of left upper chest, Axilla: are normal, Lymph nodes: lymphadenopathy is not appreciated. Vital Signs: 21:33 Resp 16 S; Weight 49.9 kg (R); Height 5 ft. 2 in. (157.48 cm) (R); Pain 7/10; bb 21:37 BP 115 / 76; Pulse 88; Resp 16 S; Temp 98.4; Pulse Ox 99% on R/A; bb 21:33 Body Mass Index 20.12 (49.90 kg, 157.48 cm) carlos MDM: 22:18 Patient medically screened. jr8 23:47 Data reviewed: vital signs, nurses notes, lab test result(s), EKG, radiologic studies, jr8 plain films. Data interpreted: Pulse oximetry: on room air is 99 %. Interpretation: normal. Counseling: I had a detailed discussion with the patient and/or guardian regarding: the historical points, exam findings, and any diagnostic results supporting the discharge/admit diagnosis, radiology results, the need for outpatient follow up, a family practitioner, to return to the emergency department if symptoms worsen or persist or if there are any questions or concerns that arise at home. 05/21 22:28 Order name: XRAY Chest Pa And Lat (2 Views); Complete Time: 23:47 jr8 05/21 22:28 Order name: EKG - Nurse/Tech; Complete Time: 22:29 jr8 Administered Medications: 05/22 00:14 Drug: TORadol 30 mg Route: IM; Site: right gluteus; mg2 00:15 Follow up: Response: No adverse reaction; Medication administered at discharge. mg2 Disposition: 01:06 Co-signature as Attending Physician, Miguel Angel Boyle MD. [email or web address] Disposition: 05/22/19 23:53 Discharged to Home. Impression: Chest pain, unspecified. - Condition is Stable. - Discharge Instructions: Nonspecific Chest Pain, Chest Wall Pain. - Prescriptions for Ibuprofen 800 mg Oral Tablet - take 1 tablet by ORAL route every 12 hours As needed take with food; 20 tablet. - Medication Reconciliation Form, Thank You Letter, Antibiotic Education, Prescription Opioid Use form. - Follow up: Private Physician; When: 5 - 6 days; Reason: Recheck today's complaints, Continuance of care, Re-evaluation by your physician. - Problem is new. - Symptoms have improved. Signatures: Dispatcher [employer] EDMiguel Angel Krishnan MD MD pkl Lisa Cain RN RN Nikunj Vaca PA PA jr8 Aristides Saldivar RN RN mg2 Corrections: (The following items were deleted from the chart) 00:35 05/21 23:53 05/22/2019 23:53 Discharged to Home. Impression: Chest pain, unspecified. mg2 Condition is Stable. Forms are Medication Reconciliation Form, Thank You Letter, Antibiotic Education, Prescription Opioid Use. Follow up: Private Physician; When: 5 - 6 days; Reason: Recheck today's complaints, Continuance of care, Re-evaluation by your physician. Problem is new. Symptoms have improved. jr8
[2019-05-23] MEDS ORDERED: KETOROLAC 30 MG/ML INJ ONE (00:12)
[2019-05-23 01:33] VITALS: BP 115/76; TEMP 98.4; O2SAT 99
--- NOTE | 2019-05-23 15:33 | EKG ---
Test Date: 2019-05-22 Test Time: 21:38:11 Echo Vascular Tech: EVELINAT MEASUREMENT RESULTS: Intervals: Rate: 83 ID: [id number] QRSD: 84 QT: 356 QTc: 418 [place]: P: 56 ID: [id number] QRS: 84 T: 36 INTERPRETIVE STATEMENTS: Normal sinus rhythm Normal ECG Compared to ECG 08/25/2016 14:12:44 No significant changes Electronically Signed On 05-23-19 15:32:45 LAWN CARETAKER by Yoni Davies
== END 2019-05-23 00:35 | disposition home or self-care (01) ==
LOC: ER 21:16
DX: R07.9 Chest pain, unspecified (principal)
CPT/HCPCS: 71046; 93005; 96372; 99283

== ENCOUNTER 2023-01-29 08:26 | Emergency (ER) | payer OTHER ==
--- OUTSIDE RECORDS SUMMARY | 2023-01-29 09:03 | XMS REPORT | Continuity of Care Document ---
:2000 Author Organization [facility] t Address [address] [place] [place] [address] Care Team Providers Name Role Phone VargasNallely looney Attending Clinician Unavailable [email or web address] Attending Clinician Unavailable [email or web address] Admitting Clinician Unavailable Payers Payer Name Policy Type Policy Number Effective Date Expiration Date S [facility] [id number] [place] [address] [id number] 2021 Common HEALTHCARE 00:00:00 [facility] Problems Condition Condition Condition Status Onset Resolution Last Treating Co mments Source Name Details Category Date Date Treatment Clinician Date Mixed Hyperlipem Problem Active Commo n hyperlipid ia, mixed Spi rit emia [facility] Mitral Mitral Problem Active Common valve valve Spirit prolapse prolapse [facility] [id number] Encounter Problem Active Comm on for Spirit contracept - [facility] nesha [facility] unspecifie Center d type [id number] H/O Problem Active Common chlamydia Spirit infection [facility] [id number] Encounter Problem Active Com mon for Spirit Depo-Prove - [facility] ra [facility] Allergies, Adverse Reactions, Alerts This patient has no known allergies or adverse reactions. Social History Social Habit Start Date Stop Date Quantity Comments Source Sex Assigned At Com mon [facility] History of Tobacco Use Co mmon [facility] Smoking Status Start Date Stop Date Source Never Smoker Common [facility] Medications Ordered Filled Start Stop Current Ordering Indication Dosage Frequency Signature Comments Components Source Medication Medication Date Date Medication? Clinician (SIG) Name Name medroxyprog medroxyprog 2019-1 No 150mg Common esterone ac esterone ac 0-24 S pirit 00:00: - [facility] medroxyprog medroxyprog 2019-1 No 150mg Common esterone ac esterone ac 0-24 S pirit 00:00: [facility] medroxyprog medroxyprog 2019-1 No 150mg Common esterone ac esterone ac 0-24 S pirit 00:00: - [facility] medroxyprog medroxyprog 2019-0 No 150mg Common esterone ac esterone ac 7-31 S pirit 00:00: - [facility] medroxyprog medroxyprog 2019-0 No 150mg Common esterone ac esterone ac 7-31 S pirit 00:00: [facility] medroxyprog medroxyprog 2019-0 No 150mg Common esterone ac esterone ac 7-31 S pirit 00:00: - [facility] Flagyl 500 Flagyl 500 2019-0 No 1{table BID Flagyl 500 Common MG MG 5-20 t} MG Spirit 00:00: [facility] Flagyl 500 Flagyl 500 2019-0 No 1{table BID Flagyl 500 MG MG 5-20 t} MG 00:00: 00 Flagyl 500 Flagyl 500 2019-0 No 1{table BID Flagyl 500 MG MG 5-20 t} MG 00:00: 00 Macrobid Macrobid 2019-0 No 1{capsu BID Macrobid Common 100 MG 100 MG 5-14 le_with 100 MG Spirit 00:00: _food} - [facility] medroxyprog medroxyprog 2019-0 No 150mg Common esterone ac esterone ac 5-14 S pirit 00:00: - [facility] Macrobid Macrobid 2019-0 No 1{capsu BID Macrobid 100 MG 100 MG 5-14 le_with 100 MG 00:00: _food} medroxyprog medroxyprog 2019-0 No 150mg Common esterone ac esterone ac 5-14 S pirit 00:00: - [facility] 00 [facility] Macrobid Macrobid 2019-0 No 1{capsu BID Macrobid 100 MG 100 MG 5-14 le_with 100 MG 00:00: _food} 00 medroxyprog medroxyprog 2019-0 No 150mg Common esterone ac esterone ac 5-14 S pirit 00:00: - [facility] medroxyprog medroxyprog 2019-0 No 150mg Common esterone ac esterone ac 2-22 S pirit 00:00: - [facility] 00 [facility] medroxyprog medroxyprog 2019-0 No 150mg Common esterone ac esterone ac 2-22 S pirit 00:00: - [facility] medroxyprog medroxyprog 2019-0 No 150mg Common esterone ac esterone ac 2-22 S pirit 00:00: - [facility] medroxyprog medroxyprog 2018-1 No 150mg Common esterone ac esterone ac 1-30 S pirit 00:00: - [facility]I 00 [facility] medroxyprog medroxyprog 2018-1 No 150mg Common esterone ac esterone ac 1-30 S pirit 00:00: - [facility]I 00 [facility] medroxyprog medroxyprog 2018-1 No 150mg Common esterone ac esterone ac 1-30 S pirit 00:00: - [facility] medroxyprog medroxyprog 2018-0 No 150mg Common esterone ac esterone ac 9-06 S pirit 00:00: - [facility]I 00 [facility] medroxyprog medroxyprog 2018-0 No 150mg Common esterone ac esterone ac 9-06 S pirit 00:00: - [facility]I 00 [facility] medroxyprog medroxyprog 2018-0 No 150mg Common esterone ac esterone ac 9-06 S pirit 00:00: - [facility]I 00 [facility] Atorvastati Atorvastati No 1{table QD Atorvastat Common n Calcium n Calcium t} in Calcium Spirit 40 MG 40 MG 40 MG - [facility] Metoprolol Metoprolol No 1{capsu QD Metoprolol Common Succinate Succinate le} Succinate Spirit 25 MG 25 MG 25 MG - [facility] Atorvastati Atorvastati No 1{table QD Atorvastat n Calcium n Calcium t} in Calcium 40 MG 40 MG 40 MG Metoprolol Metoprolol No 1{capsu QD Metoprolol Succinate Succinate le} Succinate 25 MG 25 MG 25 MG Atorvastati Atorvastati No 1{table QD Atorvastat n Calcium n Calcium t} in Calcium 40 MG 40 MG 40 MG Metoprolol Metoprolol No 1{capsu QD Metoprolol Succinate Succinate le} Succinate 25 MG 25 MG 25 MG Vital Signs Vital Name Observation Time Observation Value Comments Source height 2021-08-01 09:20:00 62 [in_i] [facility] weight 2021-08-01 09:20:00 124.4 [lb_av] [facility] temperature 2021-08-01 09:20:00 98.9 [degF] [facility] bmi 2021-08-01 09:20:00 22.75 kg/m2 [facility] oximetry 2021-08-01 09:20:00 98 % [facility] respiratory rate 2021-08-01 09:20:00 16 /min Comm on [facility] blood pressure 2021-08-01 09:20:00 113 mm[Hg] [facility] - systolic [facility] blood pressure 2021-08-01 09:20:00 76 mm[Hg] Common [facility] - diastolic [facility] height 2021-06-27 08:20:00 62 [in_i] [facility] weight 2021-06-27 08:20:00 122.1 [lb_av] [facility] temperature 2021-06-27 08:20:00 98.7 [degF] [facility] bmi 2021-06-27 08:20:00 22.33 kg/m2 [facility] oximetry 2021-06-27 08:20:00 98 % Common S pirit [facility] respiratory rate 2021-06-27 08:20:00 16 /min Comm on [facility] blood pressure 2021-06-27 08:20:00 111 mm[Hg] Common [facility] - systolic [facility] blood pressure 2021-06-27 08:20:00 70 mm[Hg] Common [facility] - diastolic [facility] Procedures This patient has no known procedures. Encounters Start End Encounter Admission Attending Care Care Encounter Source Date/Time Date/Time Type Type Clinicians Facility Department ID 2021-06-27 Outpatient Vargas, STLMLC STLMLC [id number] Common 08:16:01 Avnee [facility] 2021-04-17 Outpatient STLMLC STLMLC [id number] Common 11:02:06 [id number] [facility] 2022-10-16 2022-10-16 Outpatient [email or web address] PRIV PRIV [id number] [facility] 00:00:00 00:00:00 diyala_S [id number] Medic al 2022-10-13 2022-10-13 Outpatient [email or web address] PRIV PRIV [id number] [facility] 00:00:00 00:00:00 diyala_S [id number] Medic al 2022-10-03 2022-10-03 Outpatient [email or web address] PRIV PRIV [id number] [facility] 00:00:00 00:00:00 diyala_S [id number] Medic al 2021-08-01 2021-08-01 PREV VISIT STLMLC STLC [id number] Common 00:00:00 00:00:00 EST AGE [facility] 18-39 [facility] 2021-08-01 2021-08-01 (TEL) STLMLC STLMLC [id number] Co mmon 00:00:00 00:00:00 [facility] 2021-06-27 2021-06-27 OFFICE STLMLC STLMLC [id number] Co mmon 00:00:00 00:00:00 VISIT NEW [facility] it PT LEVEL 3 - [facility] Results This patient has no known results.
[2023-01-29 09:45] LABS: Specific Gravity 1.006 (1.005-1.030)
[2023-01-29 09:49] LABS: Specific Gravity 1.006 (1.005-1.030); Urine Bacteria <20 /HPF (<20); Urine Bilirubin NEGATIVE (Negative); Urine Blood 2+ (Negative); Urine Clarity Turbid (Clear); Urine Color Colorless (Yellow); Urine Glucose NEGATIVE (Negative); Urine Mucus Slight /HPF (None Seen); Urine Protein NEGATIVE (Negative); Urine RBC <5 /HPF (None Seen); Urine Urobilinogen Normal (Normal); Urine pH 7.5 (5.0-7.0)
[2023-01-29 10:09] LABS: Absolute Lymphocytes (CBC) 1.6 K/uL (0.7-4.9); Hematocrit 38.9 % (36.0-45.0); MCV 84.5 fL (80-100); MPV 7.6 fL (7.6-11.3); Platelets 374 thou/uL (152-406)
--- NOTE | 2023-01-29 10:15 | RAD REPORT ---
EXAM DESCRIPTION: US - 1St Trimest Single 1St Fetus - 01/29/2023 9:53 am CLINICAL HISTORY: with vaginal bleeding COMPARISON: None FINDINGS: Uterus measures 10 x 5 x 5 centimeters. Gestational sac within the endometrium. Within this is a pole crown-rump length 3 centimeters. Cardiac activity 167 beats per minute Placenta posterior. Small subchorionic bleed. Cervix closed Right and left adnexal unremarkable Neither ovary seen secondary to overlying bowel gas. No significant free fluid IMPRESSION: Single live intrauterine with an estimated gestational age 9 weeks 5 days NOMI 08/29/2023 Small subchorionic bleed
[2023-01-29 10:49] LABS: Albumin 3.9 g/dL (3.4-5.0); Bilirubin Total 0.4 mg/dL (0.2-1.0); Potassium 3.7 mEq/L (3.5-5.1); Protein, Total 8.2 g/dL (6.4-8.2)
--- NOTE | 2023-01-29 11:41 | EDPHYS ---
Physician Documentation [facility] Name: Brenda Reina Age: 22 yrs Sex: Female : 2000 Arrival Date: 01/29/2023 Time: 08:26 Bed 13 Private MD: ED Physician Jean-Paul Salinas HPI: 01/29 09:22 This 22 yrs old Female presents to ER via Ambulatory with complaints of ms3 Vaginal Bleeding, + Preg <12wks, Low Back Pain. 09:22 22-year-old female with past medical history of asthma presents to the emergency ms3 department for vaginal bleeding that began this morning. Patient states she developed lower back pain yesterday. Patient states her back pain is currently 6/10 and does not radiate. Patient states her gas examiner is Dr. Duarte and used them. Patient states her last menstrual period is 11/24/2022 and she is a -0-1-0. Patient denies dysuria, fevers, chills, nausea, vomiting. Patient states her blood type is a positive from a lab performed at her OB on July 23. 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 - Social history:: Smoking status: Patient denies any tobacco usage or history of. ROS: 09:22 Constitutional: Negative for fever, and chills. Neck: Negative for injury, pain, and ms3 swelling, Cardiovascular: Negative for chest pain, and palpitations. Respiratory: Negative for shortness of breath, cough, wheezing, and pleuritic chest pain, Abdomen/GI: Negative for abdominal pain, nausea, vomiting, diarrhea, and constipation, 09:22 Skin: Negative for injury, rash, and discoloration, :22 : Positive for vaginal bleeding, :22 All other systems are negative, Exam: :22 Constitutional: This is a well developed, well nourished patient who is awake, alert, ms3 and in no acute distress. Head/Face: Normocephalic, atraumatic. Neck: Trachea midline, no cervical lymphadenopathy. Supple, full range of motion without nuchal rigidity, or vertebral point tenderness. No Meningismus. Chest/axilla: Normal chest wall appearance and motion. Nontender with no deformity. Cardiovascular: Regular rate and rhythm with a normal S1 and S2. No gallops, murmurs, or rubs. Normal PMI, no JVD. No pulse deficits. Respiratory: Lungs have equal breath sounds bilaterally, clear to auscultation and percussion. No rales, rhonchi or wheezes noted. No increased work of breathing, no retractions or nasal flaring. Skin: Warm, dry with normal turgor. Normal color with no rashes, no lesions, and no evidence of cellulitis. MS/ Extremity: Pulses equal, no cyanosis. Neurovascular intact. Full, normal range of motion. 09:22 Abdomen/GI: Inspection: abdomen appears normal, Bowel sounds: normal, Palpation: moderate abdominal tenderness, in the suprapubic area, Vital Signs: 08:58 BP 128 / 84; Pulse 91; Resp 17; Temp 98.4; Pulse Ox 98% ; Weight 55.34 kg; Height 5 ft. jl7 2 in. ; Pain 6/10; 10:00 BP 105 / 75; Pulse 71; Resp 18; Pulse Ox 98% on R/A; eh3 10:45 BP 97 / 55; Pulse 70; Resp 18; Pulse Ox 96% on R/A; eh3 11:45 BP 108 / 77; Pulse 85; Resp 18; Pulse Ox 100% on R/A; eh3 08:58 Body Mass Index 22.31 (55.34 kg, 157.48 cm) jl7 08:58 Pain Scale: Adult jl7 MDM: 08:57 Patient medically screened. ms3 09:22 Differential diagnosis: threatened Ab, missed Ab, ectopic . ms3 11:41 Data reviewed: vital signs, nurses notes, lab test result(s), radiologic studies, and ms3 as a result, I will discharge patient. Counseling: I had a detailed discussion with the patient and/or guardian regarding the historical points, exam findings, and any diagnostic results supporting the discharge/admit diagnosis, lab results, radiology results. ED course: Discussed labs and imaging with patient and her . Patient to follow-up with her GROUND WIRER in 2 to 3 days. Patient understands and agrees with plan. All questions were answered. Return precautions discussed include worsening symptoms, or any other concerns. 01/29 09:03 Order name: CBC with Diff; Complete Time: 10:34 ms3 01/29 09:03 Order name: CMP; Complete Time: 11:29 ms3 01/29 09:03 Order name: Test, Urine; Complete Time: 09:59 ms3 01/29 09:03 Order name: Urinalysis w/ reflexes; Complete Time: 09:59 ms3 01/29 09:03 Order name: Quantitative Hcg; Complete Time: 11:29 ms3 01/29 09:11 Order name: 1St Trimest Single 1St Fetus; Complete Time: 10:34 EDMS 01/29 09:03 Order name: IV Saline Lock; Complete Time: 10:16 ms3 01/29 09:03 Order name: Labs collected and sent; Complete Time: 10:16 ms3 Administered Medications: No medications were administered Point of Care Testing: Urine : 11:50 hCG Reading: Positive; eh3 Disposition Summary: 01/29/23 11:41 Discharge Ordered Notes: Location: Home ms3 Condition: Stable ms3 Diagnosis - Threatened ms3 Followup: ms3 - With: Private Physician - When: 2 - 3 days - Reason: Re-evaluation by your physician Discharge Instructions: - Discharge Summary Sheet ms3 - Threatened Miscarriage ms3 Forms: - Medication Reconciliation Form ms3 - Thank You Letter ms3 - Antibiotic Education ms3 - Prescription Opioid Use ms3 - Patient Portal Instructions ms3 - Leadership Thank You Letter ms3 Signatures: Dispatcher [employer] Mariel Amado RN RN jl7 Jean-Paul Salinas DO DO ms3 Corrections: (The following items were deleted from the chart) 09: 09:04 OB Complete+US.RAD.BRZ ordered. [place] HIGH
--- NOTE | 2023-01-29 11:41 | ER ---
Nurse's Notes [facility] Name: Brenda Reina Age: 22 yrs Sex: Female : 2000 Arrival Date: 01/29/2023 Time: 08:26 Bed 13 Private MD: Diagnosis: Threatened Presentation: 01/29 08:58 Chief complaint: Patient states: Dark colored bloody discharge this morning, low back jl7 pain started last night, denies urinary symptoms. Coronavirus screen: At this time, the client does not indicate any symptoms associated with coronavirus-19. Ebola Screen: No symptoms or risks identified at this time. Initial Sepsis Screen: Does the patient meet any 2 criteria? No. Patient's initial sepsis screen is negative. Does the patient have a suspected source of infection? No. Patient's initial sepsis screen is negative. Risk Assessment: Do you want to hurt yourself or someone else? Patient reports no desire to harm self or others. Onset of symptoms was January 29, 2023. 08:58 Method Of Arrival: Ambulatory [facility] 08:58 Acuity: JACLYN 3 jl7 Triage Assessment: 09:00 General: Appears in no apparent distress. uncomfortable, Behavior is calm, cooperative, jl7 appropriate for age. Pain: Complains of pain in low back area. : Denies burning with urination. 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 - Social history:: Smoking status: Patient denies any tobacco usage or history of. Screenin:45 [facility] ED Fall Risk Assessment (Adult) Score/Fall Risk Level 0 - 2 = Low Risk. Abuse eh3 screen: Denies threats or abuse. Denies injuries from another. Nutritional screening: No deficits noted. Tuberculosis screening: No symptoms or risk factors identified. Assessment: 09:01 Reassessment: Dr. Salinas in triage assessing pt. jl7 09:45 Obstetrical Assessment: General assessment: awake and alert, skin warm and dry, eh3 respirations even and unlabored, Patient reports back pain. General: Appears in no apparent distress. comfortable, Behavior is calm, cooperative, appropriate for age. Pain: Complains of pain in suprapubic area and low back area. Neuro: Oriented to person, place, time, situation. Cardiovascular: Capillary refill < 3 seconds. Respiratory: Airway is patent Respiratory pattern is regular, symmetrical. GI: Abdomen is round non-distended. : Reports vaginal bleeding that is brown, with clots. Derm: Skin is pink, warm \T\ dry. Musculoskeletal: Circulation, motion, and sensation intact. 10:45 Reassessment: Patient appears in no apparent distress at this time. Patient and/or 3 family updated on plan of care and expected duration. Pain level reassessed. Patient is alert, oriented x 3, equal unlabored respirations, skin warm/dry/pink. 11:45 Reassessment: Patient appears in no apparent distress at this time. Patient and/or 3 family updated on plan of care and expected duration. Pain level reassessed. Patient is alert, oriented x 3, equal unlabored respirations, skin warm/dry/pink. Vital Signs: 08:58 BP 128 / 84; Pulse 91; Resp 17; Temp 98.4; Pulse Ox 98% ; Weight 55.34 kg; Height 5 ft. jl7 2 in. ; Pain 6/10; 10:00 BP 105 / 75; Pulse 71; Resp 18; Pulse Ox 98% on R/A; eh3 10:45 BP 97 / 55; Pulse 70; Resp 18; Pulse Ox 96% on R/A; eh3 11:45 BP 108 / 77; Pulse 85; Resp 18; Pulse Ox 100% on R/A; eh3 08:58 Body Mass Index 22.31 (55.34 kg, 157.48 cm) jl7 08:58 Pain Scale: Adult jl7 Vitals: 11:50 Heart Tones Not done. 3 ED Course: 08:28 Patient arrived in ED. rg4 08:38 Jean-Paul Salinas DO is Attending Physician. ms3 09:00 Triage completed. jl7 09:00 Arm band placed on right wrist. jl7 09:32 Arpita Parrish, RN is Primary Nurse. eh3 09:45 Patient has correct armband on for positive identification. Bed in low position. Call eh3 light in reach. Side rails up X2. Adult w/ patient. Provided Education on: use of call de luna. Pulse ox on. NIBP on. 09:55 1St Trimest Single 1St Fetus In Process Unspecified. EDMS 10:04 Inserted saline lock: 20 gauge in right antecubital area, using aseptic technique. eh3 Blood collected. 11:50 No provider procedures requiring assistance completed. IV discontinued, intact, eh3 bleeding controlled, No redness/swelling at site. Pressure dressing applied. Administered Medications: No medications were administered Medication: 11:50 VIS not applicable for this client. eh3 Point of Care Testing: Urine : 11:50 hCG Reading: Positive; eh3 Outcome: 11:41 Discharge ordered by . ms3 11:50 Discharged to home ambulatory, with significant other, 3 11:50 Condition: stable 11:50 Discharge instructions given to patient, Instructed on discharge instructions, follow up and referral plans. Demonstrated understanding of instructions, follow-up care, 11:50 Patient left the ED. eh3 Signatures: Dispatcher [employer] EDMS Patsy Aquino rg4 Mariel Santa, RN RN jl7 Jean-Paul Salinas DO DO ms3 Arpita Parrish, RN RN eh3
[2023-01-29 12:18] VITALS: TEMP 98.4
[2023-01-29 12:35] VITALS: BP 108/77; O2SAT 100
== END 2023-01-29 11:50 | disposition home or self-care (01) ==
LOC: ER 08:26
DX: O20.0 Threatened abortion (principal)
CPT/HCPCS: 36415; 76801; 80053; 81001; 81025; 84702; 85025; 99284